=== PATIENT | female | born 1990 | race American Indian/Alaskan Native ===

== ENCOUNTER 2017-03-05 01:38 | Outpatient (CLI) | payer MEDICAID ==
[2017-03-05] MEDS ORDERED: LACTATED RINGERS 500 ML IV ONE (01:53)
[2017-03-05] MEDS ORDERED: LACTATED RINGERS 1,000 ML IV SCH (03:00)
--- NOTE | 2017-03-05 03:10 | Ultrasound Report ---
FINAL REPORT EXAM: US OB LIMITED HISTORY: Placenta position, Position, c/O vaginal bleeding TECHNIQUE: Transabdominal imaging was obtained of the pelvis. FINDINGS: There is a single viable intrauterine in breech position with an estimated gestational age of 23 weeks 4 days based on measurements. A complete survey of organs was not obtained. The placenta is anterior in position and is grade 0. There is no evidence of placenta previa or abruption. There is a small placental Delong in the inferior aspect of the placenta measuring up to 1.8 cm in diameter. The heart rate is 143 BPM. IMPRESSION: Twenty-three week 4 day breech . Normal appearing anterior placenta. No evidence of placenta previa or abruption.
== END 2017-03-05 03:12 | disposition home or self-care (01) ==
LOC: TRG 01:38
PROVIDERS: ATTEND Obstetrics & Gynecology
DX: O32.1XX0 Maternal care for breech presentation, not applicable or unspecified (principal); O47.02 False labor before 37 completed weeks of gestation, second trimester; Z3A.23 23 weeks gestation of pregnancy
CPT/HCPCS: 59025; 76815; J7120

== ENCOUNTER 2018-01-19 07:19 | Emergency (ER) | payer OTHER, MEDICAID ==
[2018-01-19] MEDS ORDERED: ZOFRAN IV ONE (08:53)
[2018-01-19] MEDS ORDERED: SUBLIMAZE IV ONE ×3 (08:53→11:00)
[2018-01-19] MEDS ORDERED: NACL 0.9% 1000 ML 1,000 ML IV ONE (08:53)
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
[2018-01-19 09:10] LABS: Hematocrit 35.3 % (30.3-42.9); Hemoglobin 11.8 gm/dl (10.1-14.3); Mean Corpuscular HGB Conc 34 % (30-34); Mean Corpuscular Hemoglobin 28 pg (28-32); Mean Corpuscular Volume 83 fl (79-97); Platelet Count 291 K/mm3 (140-440); Red Blood Count 4.24 M/mm3 (3.65-5.03); Red Cell Distribution Width 14.8 % (13.2-15.2)
[2018-01-19 09:26] LABS: Alanine Aminotransferase 21 units/L (7-56); Albumin 4.7 g/dL (3.9-5); BUN/Creatinine Ratio 11; Blood Urea Nitrogen 8 mg/dL (7-17); Calcium 9.2 mg/dL (8.4-10.2); Hemolysis Index 1
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
[2018-01-19 10:47] LABS: INR 1.01 (0.87-1.13); Partial Thromboplastin Time 26.1 Sec. (24.2-36.6)
[2018-01-19 10:57] VITALS: BP 126/86
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
[2018-01-19 12:15] LABS: Lipase 12 units/L (13-60)
== END 2018-01-19 12:18 | disposition home or self-care (01) ==
LOC: ED 07:19
DX: R07.89 Other chest pain (principal); R10.11 Right upper quadrant pain; F12.90 Cannabis use, unspecified, uncomplicated; Z85.71 Personal history of Hodgkin lymphoma; Z91.013 Allergy to seafood; V49.09XA Driver injured in collision with other motor vehicles in nontraffic accident, initial encounter; W22.11XA Striking against or struck by driver side automobile airbag, initial encounter; Y93.89 Activity, other specified; Y99.8 Other external cause status; Y92.488 Other paved roadways as the place of occurrence of the external cause
CPT/HCPCS: 36415; 71045; 71260; 74177; 80053; 83690; 84702; 85027; 85610; 85730; 93005; 93010; 96374; 96375; 96376; 99284; J2405; J3010; J7030; Q9967